=== PATIENT | female | born 1970 | race Two or more races ===

== ENCOUNTER 2016-10-15 12:00 | Emergency (ER) | payer MEDICAID, OTHER ==
[~2016-10-15] VITALS: Ht 152.4 cm; Wt 60.5 kg
[~2016-10-15 12:00] MED LIST: ALBU8.5H3 INH; ATOR20TA38 PO; HYDR12.58 PO; IBUP-1542 PO; PRED20TA PO
[2016-10-15 12:05] VITALS: Ht 152.4 cm; Wt 60.5 kg
[2016-10-15] MEDS ORDERED: ONDANSETRON (ODT) 4 MG TAB ODT STA (12:46)
[2016-10-15 13:06] LABS: URINE BLOOD (Dip) POC 2+ (NEGATIVE)
[2016-10-15] MEDS ORDERED: ONDA4TAB14 PO (13:26)
[2016-10-15] MEDS ORDERED: BACTDS PO (13:26)
[2016-10-15] MEDS ORDERED: PHEN-537 PO (13:26)
[2016-10-15] MEDS ORDERED: CEFTRIAXONE 1 GM INJ IM ONE (13:30)
[2016-10-15] MEDS ORDERED: LIDOCAINE 1% (MDV) 20 ML INJ SC ONE (13:30)
--- NOTE | 2016-10-15 13:52 | ERD ---
ER Documentation Chief Complaint Date/Time DATE: 10/15/16 TIME: 13:50 Chief Complaint dysuria ap n/v HPI Patient is a 46-year-old female she complains of headache for 2 days she has been taking Tylenol. Yesterday she vomited. Her body feels weak. She has burning with urination and some mild dysuria and frequency. She has had a history of UTIs. She has hysterectomy. She has hypertension takes hydrochlorothiazide. She does have nausea now. No fevers or chills ROS All systems reviewed and are negative except as per history of present illness. Medications Home Meds Active Scripts Sulfamethoxazole-Trimethoprim* (Bactrim* DS) 800-160 Mg Tab, 1 TAB PO BID for 7 Days, TAB Prov:KARON LLANES DO 10/15/16 Ondansetron (Ondansetron Odt) 4 Mg Tab.rapdis, 4 MG PO Q6H Y for NAUSEA AND/OR VOMITING, #10 TAB Prov:KARON LLANES DO 10/15/16 Phenazopyridine Hcl* (Pyridium*) 100 Mg Tab, 100 MG PO TID Y for URINARY PAIN, # 6 TAB Prov:KARON LLANES DO 10/15/16 Ibuprofen* (Motrin*) 600 Mg Tab, 600 MG PO TID for PAIN, #30 TAB Prov:SHANDRA BENNETT MD 03/05/16 Albuterol Sulfate* (Proair HFA*) 8.5 Gm Hfa.aer.ad, 2 PUFF INH Q4 for COUGH, #1 INHALER Prov:SHANDRA BENNETT MD 03/05/16 Prednisone* (Prednisone*) 20 Mg Tab, 40 MG PO DAILY for 4 Days, TAB Prov:SHANDRA BENNETT MD 03/05/16 Reported Medications Atorvastatin Calcium* (Atorvastatin Calcium*) 20 Mg Tablet, 20 MG PO QHS, #30 TAB 03/05/16 Hydrochlorothiazide* (Hydrochlorothiazide*) 12.5 Mg Tablet, 12.5 MG PO DAILY, TAB 07/17/15 Allergies Allergies: Coded Allergies: No Known Allergy (Unverified , 03/05/16) PMhx/Soc History of Surgery: Yes (CERCLAGEX2, CHOLECYSTECTOMY) Anesthesia Reaction: No Hx Neurological Disorder: No Hx Respiratory Disorders: No Hx Cardiac Disorders: Yes (HTN, HYPERLIPIDS) Hx Psychiatric Problems: No Hx Miscellaneous Medical Probl: No Hx Alcohol Use: No Hx Substance Use: No Hx Tobacco Use: No Physical Exam Vitals Vital Signs Date Time Temp Pulse Resp B/P Pulse Ox O2 Delivery O2 Flow Rate FiO2 10/15/16 12:05 98.4 117 17 122/76 96 Physical Exam Const: [Alert oriented 4, well-nourished well-developed nontoxic- appearing no apparent distress, interacts appropriately] Head: [Normocephalic/atraumatic, no scalp lesions] Eyes: [Normal Conjunctiva, PERRLA, EOMI no conjunctival injection no conjunctival discharge] ENT: [Normal External Ears, Nose and Mouth, no tonsillar exudates no tonsillar erythema no tonsillar edema oropharynx no erythema. bilateral ear canals are patent, bilateral tympanic membranes nonerythematous.] Neck: [Full range of motion. No meningismus. No cervical lymphadenopathy] Resp: [Clear to auscultation bilaterally, no wheezes rhonchi or rales, breathing normally, no tachypnea no nasal flaring no grunting no accessory muscle use no retractions] Cardio: [Regular rate and rhythm, no murmurs] Abd: [Soft, non tender, non distended. Normal bowel sounds, no rebound rigidity or guarding. Normoactive bowel sounds no flank tenderness, negative McBurney's negative Gaffney sign.] Skin: [No petechiae or rashes, no hives no urticaria no abscess no laceration no new warmth] Back: [No midline or flank tenderness, full range of motion without pain ] Ext: [No cyanosis, clubbing or edema] Neuro: M/S: Alert and oriented 4. Face: EOMI, face and pharynx with normal sensation and function Motor: Normal strength throughout, muscle strength is 5 out of 5 bilateral upper extremity and bilateral lower extremity Sensation: Normal sensation throughout Speech: Normal Cerebel: Normal coordination Normal gait DTR: 2+ and symmetric upper/lower extremities Psych: [Normal Mood and Affect, no suicidal ideation or homicide ideation] Results 24 hrs Laboratory Tests Test 10/15/16 13:05 Bedside Urine Blood 2+ Bedside Urine Glucose (UA) 0.1% Bedside Urine Ketones (LAB) Negative Bedside Urine Leukocyte Esterase (L 3+ Bedside Urine Nitrite (LAB) Positive Bedside Urine Protein (LAB) 2+ Bedside Urine pH (LAB) 6.0 Current Medications Medications (Trade) Dose Ordered Sig/Batsheva Route PRN Reason Start Time Stop Time Status Last Admin Dose Admin Ondansetron HCl (Zofran Odt) 4 mg ONCE STAT ODT 10/15/16 12:46 10/15/16 12:47 DC 10/15/16 13:05 Ceftriaxone Sodium (Rocephin) 1 gm ONCE ONCE IM 10/15/16 13:30 10/15/16 13:31 DC 10/15/16 13:26 Lidocaine (Xylocaine 1% (Mdv) 20 ml) 20 ml ONCE ONCE SC 10/15/16 13:30 10/15/16 13:31 DC 10/15/16 13:26 Procedures/MDM Patient's urine shows nitrites +3+ leukocytes 2+ protein 2+ blood trace glucose negative ketones. Nitrates and leukocytes being positive shows she has a UTI. I doubt pyelonephritis and she has no flank tenderness no fevers or chills and she appears nontoxic and not ill-appearing we gave her Zofran for nausea will give her Rocephin for the UTI and antibiotics for home and Pyridium as well. Vital signs are stable she appears well she is stable for discharge and outpatient follow-up. Departure Diagnosis: Primary Impression: Acute UTI Condition: Stable Patient Instructions: Understanding Urinary Tract Infections (UTIs) KARON LLANES DO Oct 15, 2016 13:52
== END 2016-10-15 13:30 | disposition home or self-care (01) ==
LOC: FTE 12:00
DX: N39.0 Urinary tract infection, site not specified (principal); I10 Essential (primary) hypertension; R11.2 Nausea with vomiting, unspecified
CPT/HCPCS: 81003; J0696; Z7610; 96372